=== PATIENT | female | born 1975 | race African-American/Black ===

== ENCOUNTER 2021-10-07 17:34 | Emergency (ER) | payer BC ==
[~2021-10-07] VITALS: Ht 175.3 cm; Wt 119.3 kg
[2021-10-07 20:20] VITALS: BP 175/95
[2021-10-07] MEDS ORDERED: PROAIR HFA INH8.5 GM INH (20:32)
[2021-10-07] MEDS ORDERED: BENZONATATE100 MG PO (20:32)
== END 2021-10-07 20:41 | disposition home or self-care (01) ==
LOC: ER 18:36
DX: R50.9 Fever, unspecified (principal); J06.9 Acute upper respiratory infection, unspecified; R05.9 Cough, unspecified; I10 Essential (primary) hypertension
CPT/HCPCS: 36415; 71045; 85379; 93005; 99283